=== PATIENT | female | born 1970 | race Caucasian/White ===

== ENCOUNTER → 2016-06-06 | Outpatient (CLI) | payer BC ==
[~2016-06-06] MED LIST: ASPI325T4 PO; CHOL100010 PO; METO25TA3 PO; TRAZ50TA35 PO
[2016-06-06 11:20] LABS: BASO % 0.6 %; BASO ABS # 0.04 K/uL (0-0.2); COMPLETE YES; EOS % 2.2 %; HEMATOCRIT 41.7 % (37-47); IG% 0.3 %; LYMPH % 26.3 %; LYMPH ABS # 1.69 K/uL (1.2-3.4); MEAN CELL VOLUME 87.4 fL (80-100); MEAN CORPUSCULAR HEMOGLOBIN 29.8 pg (25-34); MEAN CORPUSCULAR HGB CONC 34.1 g/dl (32-36); MEAN PLATELET VOLUME 10.1 fL (7.4-10.4); NEUT % 63.6 %; PLATELET COUNT 243 K/uL (130-400); RED BLOOD COUNT 4.77 M/uL (4.2-5.4); WHITE BLOOD COUNT 6.43 K/uL (4.8-10.8)
[2016-06-06 11:29] LABS: ALT/SGPT 25 U/L (12-78); BLOOD UREA NITROGEN 10 mg/dl (7-18); BUN/CREATININE RATIO 16.2 (10-20); CARBON DIOXIDE 25 mmol/L (21-32); CHLORIDE 107 mmol/L (98-107); CHOLESTEROL 183 mg/dl (0-200); CREATININE 0.61 mg/dl (0.60-1.20); GLUCOSE 108 mg/dl (70-99); POTASSIUM 4.1 mmol/L (3.5-5.1); SODIUM 139 mmol/L (136-145)
[2016-06-06 11:39] LABS: CALCIUM 8.6 mg/dl (8.5-10.1)
[2016-06-06 11:48] LABS: ALKALINE PHOSPHATASE 91 U/L (45-117); AST/SGOT 16 U/L (15-37); CHOLESTEROL/HDL RATIO 3.9; HDL CHOLESTEROL 47 mg/dl; LDL CHOLESTEROL CALCULATED 106 mg/dl; TRIGLYCERIDES 150 mg/dl (0-150); VERY LOW DENSITY LIPOPROT CALC 30 mg/dl
== END | disposition home or self-care (01) ==
LOC: C.LABPBG 07:44
PROVIDERS: ATTEND Neuromusculoskeletal Medicine & OMM
DX: Z00.00 Encounter for general adult medical examination without abnormal findings (principal); I10 Essential (primary) hypertension

== ENCOUNTER → 2017-01-31 | Outpatient (CLI) | payer BC ==
[2017-01-31 16:50] LABS: BASO % 0.6 %; BASO ABS # 0.04 K/uL (0-0.2); COMPLETE YES; EOS % 1.8 %; HEMATOCRIT 41.5 % (37-47); IG% 0.4 %; LYMPH ABS # 1.76 K/uL (1.2-3.4); MEAN CELL VOLUME 88.5 fL (80-100); MEAN CORPUSCULAR HEMOGLOBIN 30.3 pg (25-34); MEAN CORPUSCULAR HGB CONC 34.2 g/dl (32-36); MEAN PLATELET VOLUME 10.2 fL (7.4-10.4); MONO % 7.1 %; NEUT % 65.1 %; PLATELET COUNT 205 K/uL (130-400); RED BLOOD COUNT 4.69 M/uL (4.2-5.4); WHITE BLOOD COUNT 7.04 K/uL (4.8-10.8)
[2017-01-31 17:26] LABS: LYME DISEASE AB IGG NEG (NEG); LYME DISEASE AB IGM NEG (NEG)
[2017-01-31 17:28] LABS: BLOOD UREA NITROGEN 11 mg/dl (7-18); BUN/CREATININE RATIO 19.4 (10-20); CALCIUM 8.5 mg/dl (8.5-10.1); CARBON DIOXIDE 26 mmol/L (21-32); CHLORIDE 104 mmol/L (98-107); CREATININE 0.54 mg/dl (0.60-1.20); GLUCOSE 76 mg/dl (70-99); POTASSIUM 3.7 mmol/L (3.5-5.1); SODIUM 135 mmol/L (136-145)
[2017-01-31 17:38] LABS: THYROID STIMULATING HORMONE 0.786 uIu/ml (0.300-4.500)
== END | disposition home or self-care (01) ==
LOC: C.LABPBG 12:46
PROVIDERS: ATTEND Family Medicine
DX: R53.83 Other fatigue (principal)

== ENCOUNTER → 2017-03-04 | Outpatient (CLI) | payer BC ==
--- NOTE | 2017-03-05 05:59 | PAP/PSG TECHNICIAN REPORT ---
[facility] Cement Mason Polysomnogram Report Study name: None Report date: 03/05/2017 Study date: 03/04/2017 Referring Physician: DR. MARTINEZ Name: GAY ARCOS Interpreting Physician: Glenn Bowens D.O. Date of : 1970 Cement Mason: Marisa Lester [facility]. Sex: Female Age: 46 Study Type: PSG PAP Weight: 252 lbs Height: 46 years, Height 5' 4" BMI: 43.25 Medications: MELOXICAM 7.5 MG, CITALOPRAM 20 MG, METOPROLOL 25 MG, VIT D3 2000 UNIT Patient History 46 yr-old female here for a new CPAP treatment study. She was found to be positive for IRVING via a home sleep study. Her AHI is unknown. She chose a Quattro Air full face mask size small from [employer]. The test was started on room air and 4 CMH2O. ETCO2 testing was not utilized during this study. Room 1 Parameters Monitored NPSG: E1-M2, E2-M1, Fp1-M2, Fp2-M1, F3-M2, F4-M2, F4-M1, C3-M2, C4-M2, C4-M1, O1-M2, O2-M2, O2-M1, T3-M2, T4-M1, P3-M2, P4-M1, CHIN1, CHIN2, HR, EKG, Legs, PFLOW, SNOR, FLOW, CFLOW, Tidal Volume, THOR, ABDO, SpO2, PLTH, CPRESS, ETCO2 Wave, ETCO2, pH Sleep Architecture Sleep Stages Time at Lights Off 10:55:17 PM STAGES Time (min.) TST (%) Time at Lights On 5:30:47 AM Wake 65.5 -- Total Recording Time (TRT) 395.50 min. N1 43.5 13 Total Sleep Period (TSP) 388.5 min. N2 168.0 51 Total Sleep Time (TST) 330.0min. N3 70.0 21 Awake Time 65.5 min. REM 48.5 15 Wake after Sleep Onset 58.5 min. Sleep Efficiency (SE) 83 % Sleep Onset Latency (JACKI) 7.0 min. Number of Stage 1 Shifts None Awakenings 34 Stage Changes 115 Number of REM periods 3 REM 48.5 15 REM Latency 238.0 min. NREM 281.5 85 Body Position Analysis Supine Right Left Side Prone Vertical Total Sleep Time (min.) 210.9 0.0 155.7 155.69 0.0 0.0 Total Sleep Time (%) 53% 0% 47% 47 0% N/A% Total Sleep Time REM (min.) 31.0 0.0 17.5 None 0.0 0.0 Total Sleep Time NREM (min.) 143.3 0.0 138.2 None 0.0 0.0 Intermittent Wake (min.) 36.6 0.0 28.9 None 0.0 0.0 Total Sleep Period (%) 54% None None None None None Arousals Myoclonus (PLM) * Events Count Index Events Count Index Spontaneous 39 7 Events Awake (PLMW) 63 57.7 Respiratory 1 0.2 Events Asleep w/ Arousal (PLMA) 12 2.2 PLM 12 2 Events Asleep w/o Arousal (PLMS) 34 6.2 Snoring 0 0 Total Asleep 46 8.4 Total 52 9 Total 109 17 Respiratory Analysis * CA OA MA CH H RERA Total Count 0 0 0 0 18 0 18 Index 0.0 0.0 0.0 0 3.3 0 3.3 Mean Duration 0.0 0.0 0.0 0.00 22.9 0.0 22.9 Longest Duration 0.0 0.0 0.0 0.00 0.0 0.0 55.6 Respiratory Event Summary Total Supine ~Supine Right Left Prone REM NREM Apneas Count 0 0 0 N/A 0 N/A 0 0 Index 0.0 0 0 N/A 0.0 N/A 0 0 Hypopneas (4% Desat) Count 18 18 0 N/A 0 N/A 17 1 Index 3.3 6.2 0 N/A 0.0 N/A 21.0 0.2 Apneas & All Hypopneas Count 18 18 0 N/A 0 N/A 17 1 Index 3.3 6 0 N/A 0 N/A 21.0 0.2 Respiratory Events (Land Law Examiner+All Hyp+RERA) Count 18 18 0 N/A 0 N/A 17 1 Index 3.3 6 0 N/A 0.0 N/A 21.0 0.2 Respiratory Related Arousal Count 1 18 0 N/A 0 N/A 1 0 Index 0.2 0 0 N/A 0 N/A 1 0 Snoring Analysis Supine Right Left Prone REM NREM Total Snore duration 11.1 min Snores count 262 N/A 365 N/A 150 477 627 Snore mean duration 1.1 Sec Snores index 90 N/A 141 N/A 185.6 101.7 114.0 TST with snoring (%) 3.4% Desaturation Event Summary: Minimum %SpO2 Event Count Mean/Min/Max Duration(sec.) Desaturation Index % Time In Bed > 90 55 25.6 / 6.5 / 60.0 9.2 92.5 86 - 90 5 15.5 / 9.5 / 26.0 11.2 6.9 81 - 85 0 N/A 0.0 0.5 76 - 80 0 N/A 0.0 0.0 71 - 75 0 N/A 0.0 0.0 66 - 70 0 N/A 0.0 0.0 61 - 65 0 N/A 0.0 0.0 56 - 60 0 N/A 0.0 0.0 51 - 55 0 N/A 0.0 0.0 < 50 0 N/A 0.0 0.0 Total REM NREM Awake <50% 0.0 min. 0.0 min. 0.0 min. 0.0 min. 51 - 60% 0.0 min. 0.0 min. 0.0 min. 0.0 min. 61 - 70% 0.0 min. 0.0 min. 0.0 min. 0.0 min. 71 - 80% 0.2 min. 0.2 min. 0.0 min. 0.0 min. 81 - 90% 28.7 min. 10.5 min. 16.3 min. 1.9 min. 91 - 100% 357.7 min. 37.9 min. 263.9 min. 55.9 min. Average 92 92 92 94 Minimum SpO2 78 80 83 78 Desaturation Event Index 8.5 26.0 4.0 15.6 # Desat. Events below 89% 20 15 5 0 Time(%) with Saturation below 89% 1.7 1.3 0.2 0.2 Time(min.) with Saturation below 89% 6.5 5.2 0.7 0.6 Time (mins) REM (mins) NREM (mins) % of TST SpO2 Below 90% 34 20 N14 2.8 SpO2 Below 88% 7 0 0 1 Heart Rate Analysis Min (bpm) Max (bpm) Average (bpm) Awake 30 188 84 NREM 63 106 82 REM 66 97 78 Overall 63 106 81 Supplemental O2 Values Minimum O2 level: None Value Start Time End Time Cement Mason Comments Ms. Arcos slept in the left and supine positions. No cardiac arrhythmias or PLMs noted. No bruxism noted. CPAP was initiated at +4 CMH2O and up-titrated to a level of +6 CMH2O, Cflex 2. A Quattro Air full face mask size small from [employer] was used during titration. She awoke to use the restroom one time during the night. Ms. Arcos stated that she slept ok but will have to get used to the mask. The final report will be interpreted and signed by a sleep physician. The completed physician report will then be placed in the patient medical record. CPAP REPORT Therapy Detail Time / Page # Comment CPAP 4 cm H2O Full Face Mask Flex Pressure Relief Humidifier on 10:51:56 PM / pg. 335 CPAP 5 cm H2O Full Face Mask Flex Pressure Relief Humidifier on 2:33:58 AM / pg. 779 INCREASED FOR A HYPOPNEA AND SNORING CPAP 6 cm H2O Full Face Mask Flex Pressure Relief Humidifier on 5:05:02 AM / pg. 1081 INCREASED FOR HYPOPNEAS IN REM Therapy Event: Therapy (cm H20) 4 5 6 Total Time at Pressure (min.) 218.7 151.1 25.8 TST at Pressure (min.) 162.2 143.1 24.8 # Periods 1 1 1 Sleep Onset (min.) 7.0 0.0 0.0 REM Onset (min.) N/A 26.3 0.0 Sleep Efficiency % 74 94 96 Wakefulness (%) 25.8 5.3 3.9 Wakefulness (min.) 56.5 8.0 1.0 NREM 1 (%) 13.9 8.3 1.9 NREM 1 (min.) 30.5 12.5 0.5 NREM 2 (%) 35.0 58.9 9.7 NREM 2 (min.) 76.5 89.0 2.5 NREM 3 (%) 25.2 9.8 0.0 NREM 3 (min.) 55.2 14.8 0.0 REM (%) 0.0 17.7 84.5 REM (min.) 0.0 26.7 21.8 # Arousals 35 14 3 Arousal Index 12.9 5.9 7.3 # Snore 437 97 93 Snore Index 161.7 40.7 225.4 AHI 0.4 2.9 24.2 AHI Supine 0.7 6.8 24.2 AHI Non-Supine 0.0 0.0 N/A NREM AHI 0.4 0.0 0.0 REM AHI N/A 15.7 27.6 RDI 0.4 2.9 24.2 # Obstructive 0 0 0 # Central Ap 0 0 0 # Mixed 0 0 0 # Hypopneas 1 7 10 RERAS 0 0 0 Total Respiratory Events 1 7 10 Time Below SpO2 89.00% (min.) 0.0 2.9 3.0 Mean NREM SpO2 (%) 92 93 92 Mean REM SpO2 (%) N/A 92 91 Mean Sleep SpO2 (%) 92 92 91 Min NREM SpO2 (%) 89 83 86 Min REM SpO2 (%) N/A 80 83 Position Supine (min.) 87.7 61.9 24.8 Position Non-supine (min.) 74.5 81.2 0.0 LM Index Sleep 7.8 8.8 9.7 LM Index NREM 7.8 5.7 0.0 LM Index REM N/A 22.4 11.0 Mean Heart Rate (bpm) 85 79 75 Min Heart Rate (bpm) 75 67 63
--- NOTE | 2017-03-08 09:37 | Sleep Study ---
Sleep Study Report Date of Service: 03/04/2017 Sleep Study Report CLINICAL DATA: The patient is referred by Dr. Romero for a CPAP titration. She is a 46-year- old female with a BMI of 43.25. Her complaints were those of fatigue and headache. She has a history of hypertension. A home sleep study was done over 3 nights. Utilizing the 4 percent desaturation rule, the cumulative apnea- hypopnea index was 10.3. This would represent mild sleep apnea. This was an in -lab CPAP titration study. SLEEP ARCHITECTURE: The total sleep period was 388.5 minutes. The total sleep time was 330 minutes. The sleep efficiency was 83 percent. Wake after sleep onset was 58.5 minutes. The sleep latency was 7 minutes. The REM latency was prolonged to 238 minutes. Sleep consisted of stage N1 13 percent, stage N2 51 percent, stage N3 21 percent, stage REM 15 percent. AROUSAL DATA: The patient had a total of 52 arousals including 39 spontaneous arousals, 1 respiratory arousal, 12 PLM arousal. The arousal index was 9. PLM DATA: The patient had a total of 46 periodic limb movements of sleep for a PLM index of 8.4. There were 12 arousals associated with limb movements for a PLM arousal index of 2.2. EKG: The underlying cardiac rhythm was normal sinus. The cardiac rates 63-97 beats per minute. The average heart rate was 81 beats per minute. No cardiac arrhythmia was noted. RESPIRATORY DATA: Patient had a total of 18 respiratory events, all hypopneas. Hypopneas were scored according to the 4 percent desaturation rule. The mean duration of the hypopneas was 22.9. All of the hypopneas occurred with the patient in REM sleep and in the supine position. This occurred just prior to the termination of the study. The apnea-hypopnea index was 3.3. OXIMETRY DATA: The average saturation for the night was 92 percent. The minimum saturation was 78 percent. There was a total of 6.5 minutes with saturations less than 89 percent. BUYER INTERNSHIP COMMENTS: The patient slept on the left and supine positions. No cardiac arrhythmia noted. No bruxism noted. CPAP was initiated at 4 centimeters and up titrated to a level of 6 centimeters with C flex 2. A [employer] Quattro air full face mask size small was utilized. She awakened to use the restroom 1 time during the night. IMPRESSIONS: 1. Obstructive sleep apnea COMMENTS: The sleep efficiency was mildly decreased. The patient seemed to tolerate CPAP reasonably well. In the post sleep questionnaire she did state that she felt like she was suffocating with the mask on. She did developed a number of events just prior to getting up in the morning. This occurred in REM sleep and when she was supine. There was not time to further increase her CPAP. The CPAP titration was taken up to 6 centimeters but she will need a higher pressure than this. Would suggest ordering CPAP at 7 centimeters and then obtaining compliance stated to determine if she is still having events. RECOMMENDATIONS: 1. It is advised that the patient be started on nasal CPAP at 7 centimeters with C flex 2. 2. It is suggested that she be ordered a [employer] Quattro air full face mask size small. Alternatively she could have mask of choice. 3. Weight loss is advised in light of the elevation of body mass index of 43.25. 4. It is suggested that the patient avoid sleeping in the supine position. Almost all the events occurred when she was supine and in REM sleep. 5. Compliance data should be utilized to determine if the set pressure of 7 centimeters is adequate for her. Copies To 1: Glenn Bowens DO; Jessica Romero, DO
== END | disposition home or self-care (01) ==
LOC: C.NEUR 20:00
PROVIDERS: ATTEND Family Medicine
DX: G47.33 Obstructive sleep apnea (adult) (pediatric) (principal)

== ENCOUNTER → 2017-05-06 | Outpatient (CLI) | payer BC ==
--- NOTE | 2017-05-06 16:03 | DIAGNOSTIC IMAGING REPORT ---
R FOOT MIN 3 VIEWS ROUTINE CLINICAL HISTORY: M79.673 Foot painM79.89 Foot [id number] pain COMPARISON: None. DISCUSSION: Mild degenerative change of the intertarsal as well as tarsometatarsal joints. Benign bony exostosis from the medial navicular. No acute bony abnormality is present. Heel spur is noted. Ossification Achilles tendon insertion. There is no evidence for soft tissue swelling. IMPRESSION: Mild degenerative change primarily of the intertarsal and tarsometatarsal joints. Heel spur. No acute abnormality. The above report was generated using voice recognition software. It may contain grammatical, syntax or spelling errors. Electronically signed by: Eduardo Grijalva M.D. 05/06/2017 4:02 PM Dictated Date/Time: 05/06/2017 4:01 PM
== END | disposition home or self-care (01) ==
LOC: C.RAD1850 15:39
PROVIDERS: ATTEND Family Medicine
DX: M79.673 Pain in unspecified foot (principal); M79.89 Other specified soft tissue disorders

== ENCOUNTER → 2017-05-26 | Outpatient (CLI) | payer BC ==
--- NOTE | 2017-05-27 07:46 | MAMMOGRAPHY REPORT ---
BILATERAL DIGITAL SCREENING MAMMOGRAM TOMOSYNTHESIS WITH CAD: 05/26/2017 CLINICAL HISTORY: Routine screening. Patient reported left breast pain. TECHNIQUE: Breast tomosynthesis in addition to standard 2D mammography was performed. Current study was also evaluated with a Computer Aided Detection (CAD) system. COMPARISON: Comparison is made to exams dated: 09/23/2012 mammogram, 03/05/2011 mammogram, 01/02/2010 mammogram, and 09/13/2008 [facility]. BREAST COMPOSITION: The tissue of both breasts is almost entirely fatty. FINDINGS: There is 8 mm focal asymmetry and associated distortion surrounding a metallic biopsy marke r clip in the 12:00 right breast. The focal asymmetry and distortion are less prominent comparing to the 2008 mammogram, likely representing evolving postsurgical change. There are a few scattered dago ign rim calcifications in the breasts. No new suspicious mass, architectural distortion or cluster o f microcalcifications is seen. IMPRESSION: ACR BI-RADS CATEGORY 1: NEGATIVE 1. There is no mammographic evidence of malignancy. 2. The patient reported left breast pain but it is unclear if it is new, chronic, diffuse or focal a nd therefore clinical follow-up is recommended. If the breast pain is new and focal, targeted ultras ound may be useful. Otherwise, a one year screening mammogram is recommended. The patient will receive written notification of the results. Approximately 10% of breast cancers are not detected with mammography. A negative mammographic report should not delay biopsy if a clinically suggestive mass is present. Susanne Martinez M.D. ay/:05/26/2017 16:20:32 B2B Outside Sales Representative: Francine COLLINS)(Donny), [facility] letter sent: Normal 1/2 BI-RADS Code: ACR BI-RADS Category 1: Negative
== END | disposition home or self-care (01) ==
LOC: C.MAMM 13:51
PROVIDERS: ATTEND Family Medicine
DX: Z12.31 Encounter for screening mammogram for malignant neoplasm of breast (principal); N64.4 Mastodynia

== ENCOUNTER → 2017-06-03 | Outpatient (CLI) | payer BC ==
--- NOTE | 2017-06-03 14:24 | MAMMOGRAPHY REPORT ---
ULTRASOUND OF LEFT BREAST: 06/03/2017 CLINICAL HISTORY: 46-year-old woman presents after a few week history of a burning sensation in the l eft breast, that was severe even with gentle pressure such as rubbing against her breast. The burnin g sensation has slightly decreased over the past week and she reports it is intermittent, not constan t. No palpable lump, skin changes or nipple discharge. Recent screening mammogram performed 05/27/19 18 demonstrates no new suspicious mammographic abnormality. Patient presents for targeted ultrasound . COMPARISON: Comparison is made to exams dated: 09/13/2008 mammogram, 01/02/2010 mammogram, 03/05/2011 m ammogram, 09/23/2012 mammogram - [facility], and 05/26/2017 mammogram - [facility]. FINDINGS: Targeted ultrasound was performed in the left breast. The patient reports the abnormal sen sation is worse in the 2:00 axis, 9 cm from the nipple and then travels medially across the superior breast to the approximate 10:0011:00 axis. In the area of concern in the 2:00 left breast, 9 cm fro m the nipple, there is sonographically normal tissue without evidence of a suspicious solid or cystic mass. Likewise, throughout the remainder of the visualized superior left breast, no discrete solid or cystic masses identified. No focal skin thickening or drainable fluid collection. IMPRESSION: ACR BI-RADS CATEGORY 1: NEGATIVE There is no sonographic evidence of malignancy or other suspicious abnormality identified in the 10:0 0 through 2:00 axes of the left breast in the areas of pain and burning sensation pointed out by the patient. Therefore, continued monitoring and clinical follow-up is recommended. Otherwise recommend routine screening mammography in 1 year. Susanne Martinez M.D. ay/:06/03/2017 14:13:03 Verification Clerk: Dr. Susanne Martinez, [facility] letter sent: Normal 1/2 BI-RADS Code: ACR BI-RADS Category 1: Negative
== END | disposition home or self-care (01) ==
LOC: C.MAMM 13:38
PROVIDERS: ATTEND Family Medicine
DX: N64.4 Mastodynia (principal)

== ENCOUNTER → 2017-06-12 | Outpatient (CLI) | payer BC ==
--- NOTE | 2017-06-12 09:14 | DIAGNOSTIC IMAGING REPORT ---
R LOWER EXT NONJOINT WITHOUT CLINICAL HISTORY: RIGHT LIGAMENT SPRAIN/STRAIN pain TECHNIQUE: MRI multi axial acquisition COMPARISON STUDY: None FINDINGS: Signal characteristics the osseous structures are in general unremarkable. Findings of mild to moderate degenerative change of the first as well as second metatarsal phalangeal joints. Signal characteristics of the base of the fifth metatarsal indicate somewhat diminished signal on the T1 images with a short segment of increased signal on the inversion recovery sequences. This is best seen on coronal image 16 this appears to relate to reactive bone marrow edematous change due to a small incomplete medical stress fracture. Lytic characteristics of the remaining osseous structures show no evidence for an additional bone marrow replacing process. Structures the plantar fascia are unremarkable. All major ligamentous and tendinous structures are unremarkable. There is a localized subcutaneous fat prominence of lateral to the base of the fifth metatarsal. This appears to be a small lipoma. IMPRESSION: 1. Findings consistent with a small short segment stress related fracture base fifth metatarsal. 2. Mild associated reactive bone marrow edema. 3. Soft tissue prominence at the site of clinically palpable nodularity appears to represent a small simple lipoma. 4. Moderate degenerative change primarily of the first and second metatarsophalangeal joints. 5. Minimal additional degenerative change throughout the foot. The above report was generated using voice recognition software. It may contain grammatical, syntax or spelling errors. Electronically signed by: Eduardo Grijalva M.D. 06/12/2017 9:13 AM Dictated Date/Time: 06/12/2017 9:07 AM
== END | disposition home or self-care (01) ==
LOC: C.MRI 07:46
DX: M79.671 Pain in right foot (principal)

== ENCOUNTER → 2017-06-12 | Outpatient (CLI) | payer BC ==
[~2017-06-12] VITALS: Ht 165.1 cm; Wt 115.1 kg
[2017-06-12 09:45] VITALS: BP 132/79; PULSE 79; Ht 165.1 cm; Wt 115.1 kg
== END | disposition home or self-care (01) ==
LOC: C.NEUR 09:16
PROVIDERS: ATTEND Internal Medicine Pulmonary Disease
DX: G47.33 Obstructive sleep apnea (adult) (pediatric) (principal)

== ENCOUNTER 2018-04-03 05:40 | Observation (INO) ==
--- NOTE | 2018-03-16 08:38 | PAT Medication Instructions ---
Medication Instructions Date of Service March 16, 2018 Home Medications cholecalciferol (vitamin D3) 1,000 unit PO DAILY DO NOT take the morning of surgery cholecalciferol (vitamin D3) 1,000 unit PO DAILY Other Notes If you have any questions please call us at [phone] or [phone] or [phone] or [phone]
--- NOTE | 2018-03-16 13:04 | Anesthesiology Consultation ---
Date of Service March 16, 2018 Assessment & Plan (1) Encounter for pre-operative examination: Plan: test AM DOS *Pt may need IV team, she is a very difficult stick* Chart Review Chart Review: Acceptable Risk for Surgery and Patient seen in Pre Admission Testing Teaching & Discussion Instructed NPO after midnight before surgery, except medications with 15 cc of water. Medication instructions provided according to the PAT guidelines. History Surgery Operation Date: 04/03/18 07:30 Proposed Procedures p Robotic Total Laparoscopic Hysterectomy - Sukhdev Lopez MD Height/Weight Height: 5 ft 5 in Weight: 78.5 kg Allergies Allergy/AdvReac Type Severity Reaction Status Date / Time Bactrim Allergy Mild Rash Verified 11/08/15 10:33 sulfamethoxazole Allergy Mild Rash Verified 03/10/18 10:00 trimethoprim Allergy Mild Rash Verified 03/10/18 10:00 Medications Home Medications Medication Instructions Recorded Confirmed Last Taken cholecalciferol (vitamin D3) 1,000 unit PO DAILY 03/10/18 03/10/18 Unknown [Vitamin D3] Past Medical History Medical History Fibroid, uterine Hypertension HX OF HTN - DUE TO 77# WT LOSS NO LONGER NEEDS MEDS Sleep apnea WAS ON CPAP PREVIOUSLY--WEIGHT LOSS OF 77 POUNDS AND NO LONGER NEEDS Past Surgical History Surgical History Previous section (Resolved) X 2 Hx of cholecystectomy (Resolved) 2001 H/O exploratory laparotomy AFTER C SECTION IN 2001 HAD ABDOMINAL ABSESS AND HAD DRAINED PLACED Past Anesthesia History No Hx of Anesthesia Complications and No Family Hx of Anesthesia Complications History of PONV No Motion Sickness Screening History of Motion Sickness: No Social History Smoking Status: Never smoker Do You Dip or Chew Tobacco: No Hx Alcohol Use: No Hx Substance Use: No substance use type: does not use Exercise / Class Metabolic Activity II 4-5 Yardwork/Stairs/Walk up hill (denies CP or SOB with stairs) Review of Systems Pt denies any recent chest pain, shortness of breath, palpitations, cough, fever or URI. Physical Exam Vital Signs BP: 110/76 P: 81bpm SPO2: 99% RA T: 98.1 F R: 16 ENMT Mouth: + dental restorations (crown on bottom Left); no chipped teeth and no loose teeth Thyromental Distance: > or= 3.5 Finger Breadths (4) Mallampati Class: II Neck normal visual inspection; neck extension not limited Respiratory normal respiratory effort Auscultation: lungs clear to auscultation bilaterally Cardiovascular Rate/Rhythm: regular rate and regular rhythm Heart Sounds: no murmur Vessels: no carotid bruit Extremities: no edema Testing Laboratory Results Laboratory Tests 03/17/18 07:53 WBC 5.89 Hgb 14.6 Hct 43.9 Plt Count 215 TYPE AND SCREEN: O+, antibody -
[2018-04-03] MEDS ORDERED: CEFAZOLIN 2000MG 2,000 MG/15 ML SYR IV SCH ×2 (06:00)
[2018-04-03] MEDS ORDERED: PHENAZOPYRIDINE HCL 100 MG TAB PO SCH (06:00)
[2018-04-03] MEDS ORDERED: LACTATED RINGER'S 1,000 ML IV SCH (06:00)
[2018-04-03 06:07] LABS: Basophils # (auto) 0.03 K/uL (0-0.2); Basophils % (auto) 0.4 %; Eosinophils % (auto) 1.3 %; Hematocrit (blood only) 43.6 % (37-47); Hemoglobin 14.8 g/dL (12.0-16.0); Immature Granulocytes # (auto) 0.01 K/uL (0.00-0.02); Immature Granulocytes % (auto) 0.1 %; Lymphocytes # (auto) 1.78 K/uL (1.2-3.4); Lymphocytes % (auto) 23.3 %; Mean Corpuscular Volume 90.5 fL (80-100); Mean Platelet Volume 10.2 fL (7.4-10.4); Monocytes # (auto) 0.71 K/uL (0.11-0.59); Monocytes % (auto) 9.3 %; Neutrophils % (auto) 65.6 %; Platelet Count 215 K/uL (130-400); RDW Coefficient of Variation 13.6 % (11.5-14.5); RDW Standard Deviation 45.4 fL (36.4-46.3); Red Blood Count 4.82 M/uL (4.2-5.4); White Blood Count 7.63 K/uL (4.8-10.8)
[2018-04-03 06:10] LABS: Mean Corpuscular Hgb Conc 33.9 g/dL (32-36)
[2018-04-03 06:37] LABS: Pregnancy Test, Serum Negative (Negative)
[2018-04-03] MEDS ORDERED: PROPOFOL IV EMULSION 10 MG/ML 20 ML VIAL IV ONE (06:48)
[2018-04-03] MEDS ORDERED: ROCURONIUM BROMIDE 10 MG/ML 5 ML VIAL ONE (06:48)
[2018-04-03] MEDS ORDERED: LIDOCAINE HCL 2% 2 ML VIAL/AMP(20MG/ML) INFIL ONE (06:48)
[2018-04-03] MEDS ORDERED: MIDAZOLAM HCL 1 MG/ML 2ML VIAL ONE (06:49)
[2018-04-03] MEDS ORDERED: fentaNYL citrate 100 MCG/2 ML VIAL ONE ×2 (06:49→07:53)
[2018-04-03] MEDS ORDERED: ONDANSETRON INJ 2 MG/ML 2 ML VIAL IV PRN ×2 (06:57→11:08)
[2018-04-03] MEDS ORDERED: KETOROLAC 30 MG/ML VIAL IV PRN (06:57)
[2018-04-03] MEDS ORDERED: BUPIVACAINE 0.5 % 5 MG/1 ML MPF 30ML VIAL ONE (06:57)
[2018-04-03] MEDS ORDERED: HYDROmorphone INJ 1 MG/ML SYRINGE IV PRN (06:57)
[2018-04-03] MEDS ORDERED: METHYLENE BLUE 0.5% 10 ML VIAL ONE (06:57)
[2018-04-03] MEDS ORDERED: ATROPINE SULFATE 0.1 MG/ML 10ML SYR IV PRN (06:57)
[2018-04-03] MEDS ORDERED: LABETALOL HCL IV 5 MG/ML 20ML IV PRN (06:57)
--- NOTE | 2018-04-03 07:21 | History & Physical Bridge Note ---
Date of Service April 03, 2018 History & Physical Bridge Note I have examined the patient, reviewed the History & Physical and in the interval since the performance of the History & Physical I have noted the following changes of clinical significance: no changes noted
[2018-04-03] MEDS: LR 15ML/HR IV SCH ×2 (07:40→15:22)
[2018-04-03] MEDS ORDERED: ONDANSETRON INJ 2 MG/ML 2 ML VIAL ONE (07:53)
[2018-04-03] MEDS ORDERED: DEXAMETHASONE SOD INJ 4 MG/ML VIAL ONE (07:53)
[2018-04-03] MEDS ORDERED: GLYCOPYRROLATE 0.2 MG/ML VIAL ONE (07:53)
[2018-04-03] MEDS ORDERED: NEOSTIGMINE METHYLSULFATE 5 MG/5 ML SYR ONE (07:53)
[2018-04-03] MEDS ORDERED: HYDROmorphone INJ 2 MG/ML SYR/VIAL ONE (08:41)
[2018-04-03] MEDS ORDERED: PHENYLEPHRINE 100MCG/ML 5ML SYR ONE (10:34)
--- NOTE | 2018-04-03 10:55 | Post Operative Brief Note ---
Immediate Post Op Note v1 Date of Surgery April 03, 2018 Pre & Post Diagnosis Operation Date: 04/03/18 07:30 Pre-Op Diagnosis: Fibroid Uterus, Abnormal [place] Bleeding Post-Op Diagnosis: Fibroid Uterus, Abnormal [place] Bleeding Complications: None Findings: Enlarged ~16 week size fibroid uterus, Endometriosis with adhesions and scar tissue throughout pelvis. Small left ovarian endometrioma. Normal fallopian tubes and ovaries otherwise. Intact bladder and ureteral efflux on cystoscopy Procedure Operation Date: 04/03/18 07:30 Actual Procedures p Robotic-assisted Total Laparoscopic Hysterectomy, bilateral salpingectomy, cystoscopy - Sukhdev Lopez MD Surgeon Sukhdev Lopez MD Android Software Engineer None Estimated Blood Loss 50 Findings Consistent with Post-Op Diagnosis Drains Sawant Catheter (16fr sawant catheter placed at beginning of procedure by Dr. Lopez, sawant demonstrates orange-colored urine.)
[2018-04-03] MEDS ORDERED: ePHEDrine sulfate 50 MG/ML SYR ONE (11:02)
[2018-04-03] MEDS ORDERED: ACETAMINOPHEN 325 MG TAB PO PRN (11:08)
[2018-04-03] MEDS ORDERED: BISACODYL 10 MG SUPP PR PRN (11:08)
[2018-04-03] MEDS ORDERED: SIMETHICONE 80 MG CHEW PO PRN (11:08)
[2018-04-03] MEDS ORDERED: OXYCODONE/ACETAMINOPHEN 5mg/325mg TAB PO PRN (11:08)
[2018-04-03] MEDS ORDERED: PROMETHAZINE HCL 6.25 MG in SODIUM CHLORIDE 0.9% 50 ML IV PRN (11:47)
[2018-04-03] MEDS ORDERED: PROMETHAZINE HCL 12.5 MG in SODIUM CHLORIDE 0.9% 50 ML IV PRN (11:48)
[2018-04-03] MEDS ORDERED: PROMETHAZINE HCL 6.25 MG in SODIUM CHLORIDE 0.9% 50 ML IV ONE (11:51)
--- NOTE | 2018-04-03 12:06 | Anesthesiology Progress Note ---
Date of Service April 03, 2018 Anesthesia Post Procedure Vital Signs Vital Signs: Temp Pulse Pulse Resp BP BP Pulse Ox 04/03/18 11:55 86 16 122/74 95 04/03/18 11:50 61 19 106/59 L 98 04/03/18 11:45 83 16 109/69 96 04/03/18 11:40 60 12 103/61 100 04/03/18 11:37 63 13 100 04/03/18 11:36 68 20 104/60 100 04/03/18 11:35 60 18 100 04/03/18 11:30 61 14 100/59 L 100 04/03/18 11:25 61 14 105/57 L 100 04/03/18 11:23 36.0 C L 61 61 13 102/56 L 102/62 100 04/03/18 06:00 36.7 C 84 16 135/81 100 Notes Mental Status: alert / awake / arousable Patient Amnestic to Procedure: Yes Nausea / Vomiting: adequately controlled Pain: adequately controlled Airway Patency, RR, SpO2: stable & adequate BP & HR: stable & adequate Hydration State: stable & adequate Anesthetic Complications: no major complications apparent
[2018-04-03] MEDS ORDERED: MoRPHine SULFATE 4 MG/ML 1 ML CARP\\VIAL IV STA (14:18)
[2018-04-03] MEDS ORDERED: MoRPHine SULFATE 4 MG/ML 1 ML CARP\\VIAL ONE (14:21)
[2018-04-03] MEDS: IBUPROFEN 600 MG TAB PO PRN ×2 (17:36→22:13)
[2018-04-03] MEDS: OXYCODONE/ACETAMINOPHEN 5mg/325mg TAB PO PRN ×2 (17:36→22:14)
[2018-04-03] MEDS ORDERED: BENZOCAINE 20% AER SPR 82.5 GM CAN EXT PRN ×3 (19:25→20:53)
[2018-04-03] MEDS: DOCUSATE SODIUM 100 MG CAP PO SCH (20:04)
[2018-04-03 20:16] LABS: Hematocrit (blood only) 37.9 % (37-47)
[2018-04-04] MEDS: OXYCODONE/ACETAMINOPHEN 5mg/325mg TAB PO PRN ×2 (06:01→09:52)
[2018-04-04] MEDS: IBUPROFEN 600 MG TAB PO PRN ×2 (06:01→09:53)
--- NOTE | 2018-04-04 08:34 | Gynecologic Progress Note ---
Date of Service April 04, 2018 Assessment & Plan (1) Encounter for pre-operative examination: Post operative day 1 from [facility], BS, cystoscopy. Doing well - Stable for discharge - Post operative instructions reviewed Subjective Mami is doing well this morning. She is meeting all post operative goals. Pain is controlled and nausea has resolved. Physical Exam 2 Vital Signs (Past 24 Hours): Last Vital Signs Temp 36.6 C 04/04/18 03:25 Pulse 81 04/04/18 03:25 Resp 18 04/04/18 03:25 BP 97/58 L 04/04/18 03:25 Pulse Ox 100 04/03/18 20:05 Gastrointestinal (Abdomen): Percussion/Palpation: abdomen soft; abdomen nontender and no guarding
[2018-04-04] MEDS: DOCUSATE SODIUM 100 MG CAP PO SCH (08:51)
--- NOTE | 2018-04-04 09:09 | Discharge Summary ---
PROCEDURES WHILE ADMITTED: Robotic-assisted total laparoscopic hysterectomy, bilateral salpingectomy and cystoscopy. ADMITTING AND OPERATIVE ATTENDING: Sukhdev Lopez MD HOSPITAL COURSE: The patient presented on day of surgery for planned robotic-assisted total laparoscopic hysterectomy, bilateral salpingectomy and cystoscopy. The procedure was performed without complication. The patient was admitted for observation for postoperative care. She remained in house until postoperative day 1. There were no complications or issues that occurred postoperatively and the patient recovered well. At the time of discharge, the patient was meeting all postoperative goals. Written and detailed postoperative instructions were provided prior to discharge. Mami will follow up in clinic in 2 weeks for reevaluation and was instructed to call as needed otherwise.
--- NOTE | 2018-04-04 09:56 | Operative Report ---
DATE OF OPERATION: 04/03/2018 PROCEDURES: Robotic-assisted total laparoscopic hysterectomy, bilateral salpingectomies and cystoscopy. SURGEON: Sukhdev Lopez MD PREOPERATIVE DIAGNOSES: 1. Dysfunctional uterine bleeding. 2. Enlarged fibroid uterus. 3. Pelvic pain. 4. History of x2. POSTOPERATIVE DIAGNOSES: 1. Dysfunctional uterine bleeding. 2. Enlarged fibroid uterus. 3. Pelvic pain. 4. History of x2. 5. Endometriosis. ESTIMATED BLOOD LOSS: 50 mL. DRAINS: Mohr. FLUIDS: Continuous lactated ringer. URINE OUTPUT: 600 mL via Mohr. COMPLICATIONS: None. FINDINGS: There was noted to be an enlarged fibroid uterus approximately 16-18 week size. The largest fibroid was fundal, measuring approximately 6-7 cm in greatest diameter. There was noted to be diffuse endometriosis throughout the pelvis. There was a small endometrioma on the left ovary, which resulted in adhesion of the left ovary to the broad ligament, and posterior aspect of the uterus, there was also an endometriosis that was most distinctly noted on the uterosacral ligaments and then the ovarian fossa bilaterally. Otherwise, both ovaries did appear to be within normal limits. Otherwise, the anatomy was unremarkable. Bowels, liver edge and stomach were all grossly normal. INDICATIONS: Ms. Arcos is a 47-year-old G2, P2-0-0-2 with history of 2 prior C-sections. The patient presented with dysfunctional uterine bleeding with near persistent uterine bleeding secondary to an enlarged fibroid uterus. In addition, Mami was reporting significant pelvic pressure and pain due to the size of the fibroid uterus. Management options were discussed in clinic. The patient opted to proceed with definitive management via total laparoscopic hysterectomy, bilateral salpingectomy with cystoscopy and conservation of ovaries. Consents were reviewed and signed in clinic. DESCRIPTION OF PROCEDURE: The patient was taken to the operating room after consents were ensured. Upon presentation, she was properly identified. General endotracheal anesthesia was obtained without difficulty. The patient was then placed in dorsal lithotomy position and was prepped and draped in normal sterile fashion. A preprocedural timeout was then performed. A Mohr catheter was placed. A speculum was placed in the vagina and the cervix visualized. A [employer] uterine manipulator was then placed without difficulty. The laparoscopic portion of the case was then initiated. The uterus was noted to be at the umbilicus on exam and therefore the decision was made to put the camera incision several centimeters above the umbilicus and visualization of the abdomen and pelvis could be performed for entry. A 12 mm incision was made in the left upper quadrant. The Veress needle was inserted through the incision and the abdomen was insufflated to 50 mmHg. There was noted to be a 5 mmHg opening pressure tympany over the liver and symmetric abdominal rise consistent with appropriate intra-abdominal insufflation. A 12 mm optic-guided trocar was then inserted through the left upper quadrant incision. Inspection of the abdomen and pelvis noted atraumatic entry. Incision was then made approximately 2 cm above the umbilicus at the midline. A 12 mm port was then entered through this incision under direct visualization with atraumatic entry noted. 8 mm incisions were then made in the right and left lower quadrants with 8 mm trocars inserted through them, under direct visualization, an atraumatic entry noted. The robot was then docked. Pictures of the abdomen and pelvis were then performed. The left round ligament was then identified, cauterized and serially dissected. The opening up the broad ligament, the bladder flap was then continued anteriorly continuing up to the right side. The left uteroovarian ligament was then identified, serially cauterized and dissected. This was continued down the broad ligament to the level of the uterine vessels on the left side. Attention was then turned to the right aspect of the uterus. Right round ligament was identified, serially cauterized and dissected. The bladder flap was then continued anteriorly connecting with the left portion of the bladder flap. The right uteroovarian ligament was then identified, serially cauterized and dissected. Dissection was then continued down the broad ligament to the level of the right uterine vessels. The bladder was then dissected off of the lower uterine segment and cervix. The bladder was noted to be densely adhered to the lower uterine segment, but was gently dissected off of the lower uterine segment from the prior hysterotomy site. The [employer] uterine manipulator cup was then able to be easily identified and was noted to be free of the bladder. The right uterine vessels were then cauterized and dissected. The hysterotomy was then initiated anteriorly and continued circumferentially around the cervix starting anteriorly moving towards the right aspect of the cervix and then continued posteriorly. The left uterine vessels were then identified, serially cauterized and then dissected. The colpotomy was then continued on the left aspect of the cervix, it was continuing from the anterior aspect extending circumferentially around towards the counterclockwise towards the left until the cervix was fully dissected from the vaginal cuff. Attention was then turned towards delivery of the cervix and uterus through the hysterotomy. The uterus was noted to be rather large and delivery was somewhat difficult, but was able to be achieved. The attention was then turned towards closure of the cuff. There was noted to be a slight extension of the vaginal cuff due to delivery of the uterus. This was closed with suture, however, did have to be portion, did have to be done vaginally. At the end of the case, the portion of the cuff that was able to be seen laparoscopically was then closed with V-Loc suture in continuous running stitch. Attention was then turned towards the fallopian tubes which were serially dissected from the bilateral ovaries and were delivered through the left upper quadrant ports. Tisseel was then placed over the raw pedicles. Decision was made to end the laparoscopic portion of the case. The robot was undocked. A cystoscopy was performed and there was noted to be intact bladder without any disruption or signs of injury. There was also noted bilateral ureteral efflux. The trocars were then removed. The fascial layers were then reapproximated with single interrupted stitch of 0 Vicryl. Skin layers were reapproximated with 3-0 Monocryl. The attention was then turned to inspection of the vagina. There was noted to be a small perineal laceration which was repaired with a continuous running locked suture. There was also noted to be an extension of the vaginal cuff down the right lateral sidewall. This was closed with running locked suture of 0 Vicryl. The case was then completed. The patient was awoken from anesthesia and taken to recovery room in stable condition. The patient received 2 grams of Ancef prior to the procedure. Needle, sponge and instrument counts were correct x2 at the completion of the case. I attest to the content of the Intraoperative Record and any orders documented therein. Any exception s are noted below.
== END 2018-04-04 10:25 | disposition home or self-care (01) ==
LOC: 4N 05:40 → ASU 05:40